=== PATIENT | female | born 1995 | race Caucasian/White ===

== ENCOUNTER 2016-04-20 20:34 | Emergency (ER) | payer SELFPAY ==
[2016-04-20 21:16] VITALS: BP 123/84
[2016-04-20] MEDS ORDERED: Phenazopyridine TAB* 100 MG PO ONE (22:04)
[2016-04-20] MEDS ORDERED: Ciprofloxacin TAB* 500 MG PO ONE (22:05)
[2016-04-20] MEDS ORDERED: Ibuprofen TAB* 600 MG PO ONE (22:06)
--- NOTE | 2016-04-20 22:17 | UC ---
Complaint Female HPI - HPI Summary HPI Summary: 21 YEAR OLD FEMALE WITH COMPLAINTS OF URGENCY, FREQUENCY, PAINFUL URINATION X 1 WEEK. BACK PAIN , FEVER AND NAUSEA STARTED LAST NIGHT. STATES SHE TOOK A CRANBERRY PILL AT ONSET OF SYMPTOMS AND FELT RELIEF. MILD RELIEF WITH ONE IBUPROFEN. DENIES ABDOMINAL PAIN - History Of Current Complaint Chief Complaint: UCGU Stated Complaint: POSSIBLE UTI Time Seen by Provider: 04/20/16 21:57 Hx Obtained From: Patient Hx Last Menstrual Period: 04/13/16 Onset/Duration: Gradual Onset, Lasting Weeks - 1, Still Present Severity Initially: Mild Severity Currently: Moderate Character: Burning Aggravating Factor(s): Urination Associated Signs And Symptoms: Positive: Fever, Back Pain, Nausea. Negative: Vaginal Bleeding/Discharge, Vaginal Discharge, Genital Swelling, Genital Blisters - Risk Factors Ectopic Risk Factor: Negative Ovarian Torsion Risk Factor: Reproductive Age - Allergies/Home Medications Allergies/Adverse Reactions: Allergies Allergy/AdvReac Type Severity Reaction Status Date / Time No Known Allergies Allergy Verified 04/20/16 21:15 PMH/Surg Hx/FS Hx/Imm Hx Previously Healthy: Yes Endocrine History Of: Denies: Diabetes Cardiovascular History Of: Denies: Cardiac Disorders Respiratory History Of: Denies: Asthma - Surgical History Surgical History: None - Family History Known Family History: Negative: Hypertension, Diabetes - Social History Occupation: Employed Full-time - [employer] Lives: With Family Alcohol Use: Weekly Substance Use Type: None Smoking Status (MU): Never Smoked Tobacco Review of Systems Constitutional: Fever Skin: Negative Eyes: Negative ENT: Negative Respiratory: Negative Cardiovascular: Negative Gastrointestinal: Negative Genitourinary: Dysuria, Frequency, Urgency Motor: Negative Neurovascular: Negative Musculoskeletal: Other: - LEFT FLANK PAIN Neurological: Negative Psychological: Negative All Other Systems Reviewed And Are Negative: Yes Physical Exam Triage Information Reviewed: Yes Appearance: No Pain Distress, Well-Nourished, Ill-Appearing - MILDLY Vital Signs: Initial Vital Signs Temp 98.4 F 04/20/16 21:10 Pulse 86 04/20/16 21:10 Resp 16 04/20/16 21:10 BP 123/84 04/20/16 21:10 Pulse Ox 99 04/20/16 21:10 Vital Signs Reviewed: Yes Eyes: Positive: Conjunctiva Clear. Negative: Discharge ENT: Positive: Pharynx normal. Negative: Nasal congestion Neck: Positive: Supple, Nontender Respiratory: Positive: Lungs clear, Normal breath sounds Cardiovascular: Positive: RRR, No Murmur Abdomen Description: Positive: Nontender, No Organomegaly, Soft, CVA Tenderness (R) - MILD, CVA Tenderness (L) - MODERATE. Negative: Distended, Guarding Musculoskeletal: Positive: Strength Intact, ROM Intact Neurological: Positive: Alert, Muscle Tone Normal Psychological: Positive: Age Appropriate Behavior - PLEASANT AND COOPERATIVE Skin: Negative: rashes, breakdown Complaint Female Dx - Course Course Of Treatment: ua +. MEDICATED WITH ANTIBIOTICS, IBUPROFEN. EDUCATION ABOUT UTI AND EARLY TREATMENT - Differential Dx/Diagnosis Differential Diagnosis/HQI/PQRI: Urinary Tract Infection Provider Diagnoses: PYELONEPHRITIS. UTI Discharge - Discharge Plan Condition: Stable Disposition: HOME Prescriptions: Ciprofloxacin TAB* [Cipro Tab*] 500 mg PO BID #20 tab Phenazopyridine TAB* [Pyridium TAB*] 100 mg PO TID PRN #6 tab PRN Reason: PAINFUL URINATION Patient Education Materials: Acute Pyelonephritis (ED), Urinary Tract Infection in Women (ED)
== END 2016-04-20 22:27 | disposition home or self-care (01) ==
LOC: UCCORT 20:34
DX: N10 Acute pyelonephritis (principal); N39.0 Urinary tract infection, site not specified
CPT/HCPCS: 87077; 87086; 87186; 99202; A9270-GY; G0463

== ENCOUNTER 2016-10-20 08:21 | Emergency (ER) | payer SELFPAY ==
[2016-10-20 08:41] VITALS: BP 132/67
--- NOTE | 2016-10-20 09:26 | UC ---
Abdominal Pain Female HPI - HPI Summary HPI Summary: 21 yo pt c/o bilat mid abd pain that radiates to her left flank, vomiting after eating and diarrhea and weight loss of 11 pounds for a few weeks. Pt is concerned that it might be her thyroid, because her mother had similar problems and it was her thyroid. Pt's mother is at age 41 with cancer in her bone, skin, liver (not thyroid). Pt has tried a gluten free diet with no relief. She has also tried ensure and other supplements and she still is losing weight. States that she wants to eat and gain wait, does not have an eating disorder. States she has always been "small". Has Charlene Nicole for her PCP but was unable to get a soon appointment. Has missed work since because of the abd pain and vomiting. States she tried zofran with no relief. Denies hemetemesis, melena, hematochezia. - History of Current Complaint Chief Complaint: UCGI Stated Complaint: VOMIT/DIARRHEA WITH EATING/LOSING WEIGHT Time Seen by Provider: 10/20/16 08:39 Hx Obtained From: Patient Hx Last Menstrual Period: 2 weeks ?: No Onset/Duration: Gradual Onset, Lasting Weeks, Still Present Timing: Constant Severity Initially: Moderate Severity Currently: Moderate Pain Intensity: 2 Pain Scale Used: 0-10 Numeric Location: Discrete At: RLQ, Discrete At: LLQ, Epigastric Radiates: Yes Radiates to: Flank - left Character: Aching, Cramping Aggravating Factor(s): Nothing Alleviating Factor(s): Nothing Associated Signs and Symptoms: Positive: Back Pain, Decreased Appetite, Nausea, Vomiting, Diarrhea. Negative: Fever, Dizzy, Constipation - but is usually constipated, Blood in Stool, Urinary Symptoms Allergies/Adverse Reactions: Allergies Allergy/AdvReac Type Severity Reaction Status Date / Time seasonal Allergy Congestion Uncoded 10/20/16 08:41 PMH/Surg Hx/FS Hx/Imm Hx Previously Healthy: Yes - Surgical History Surgical History: None - Family History Known Family History: Negative: Hypertension, Diabetes - Social History Occupation: Employed Full-time Alcohol Use: Weekly Alcohol Amount: 6 Substance Use Type: None Smoking Status (MU): Never Smoked Tobacco Review of Systems Constitutional: Negative Skin: Negative Eyes: Negative ENT: Negative Respiratory: Negative Cardiovascular: Negative Gastrointestinal: Abdominal Pain, Vomiting, Diarrhea Genitourinary: Negative Motor: Negative Neurovascular: Negative Musculoskeletal: Negative Neurological: Negative Psychological: Negative All Other Systems Reviewed And Are Negative: Yes Physical Exam Triage Information Reviewed: Yes Appearance: Well-Appearing, Pain Distress, Thin Vital Signs: Initial Vital Signs Temp 98.5 F 10/20/16 08:24 Pulse 93 10/20/16 08:24 Resp 18 10/20/16 08:24 BP 132/67 10/20/16 08:24 Pulse Ox 99 10/20/16 08:24 Vital Signs Reviewed: Yes Eyes: Positive: Conjunctiva Clear ENT: Positive: Normal ENT inspection Neck: Positive: Supple, Nontender, No Lymphadenopathy, Other: - thyroid nonpalpable, no masses Respiratory: Positive: Lungs clear, Normal breath sounds, No respiratory distress Cardiovascular: Positive: RRR, No Murmur, Pulses Normal, Brisk Capillary Refill Abdomen Description: Positive: No Organomegaly, Soft, Other: - mild tenderness mild bilat lower quadrants and left upper quadrant and epigastrium. Negative: Nontender, Bruit, CVA Tenderness (R), CVA Tenderness (L), Distended, Guarding, Hernia @, Hepatomegaly, McBurney's Point Tenderness, Peritoneal Signs, Pulsatile Mass, Splenomegaly Bowel Sounds: Positive: Present Musculoskeletal: Positive: Strength Intact, ROM Intact Neurological: Positive: Alert Psychological Exam: Normal Skin Exam: Normal Abd Pain Female Course/Dx - Course Course Of Treatment: UA neg UHCG neg. weight recorded is actual weight. Will treat as possible gastritis. Advised try gluten free again. Needs close f/u with Charlene Nicole who can do bloodwork, including thyroids, and refer to GI if needed. - Differential Dx/Diagnosis Differential Diagnosis: Appendicitis, Constipation, Diverticulitis, Gall Bladder Disease, Irritable Bowel Syndrome, Peptic Ulcer Disease, Renal Colic Provider Diagnoses: abdominal pain. weight loss greater than 10% body weight by history - Physician Notification/Consults Instructed by Provider To: MD Will See In ED Discharge - Discharge Plan Condition: Stable Disposition: HOME Prescriptions: Omeprazole CAP* [Prilosec CAP* 20 MG] 20 mg PO BID #20 cap. Patient Education Materials: Gastritis (ED), Acute Nausea and Vomiting (ED) Forms: *Work Release Referrals: Charlene Nicole NP [Primary Care Provider] - (definite follow up with Charlene Nicole on Oct 27 at 11:15am. Dr. Swann made the appointment for you. ) Additional Instructions: Charlene Nicole will be able to do blood tests for you regarding your thyroid. She will also follow up about your pain and weight loss. Keep track of your weight and a food diary that you can show her. Go to the ER if you have increased pain, fever, vomiting or any new or worsening symptoms. Try the prilosec to see if decreasing acid production helps your symptoms.
== END 2016-10-20 09:51 | disposition home or self-care (01) ==
LOC: UCCORT 08:21
DX: R10.32 Left lower quadrant pain (principal); R10.31 Right lower quadrant pain; R10.13 Epigastric pain; R63.4 Abnormal weight loss; R11.2 Nausea with vomiting, unspecified; R19.7 Diarrhea, unspecified; Z32.02 Encounter for pregnancy test, result negative
CPT/HCPCS: 81003; 84702; 99212; G0463

== ENCOUNTER 2017-02-25 15:53 | Emergency (ER) | payer OTHER ==
--- NOTE | 2017-02-25 16:39 | UC ---
Hip/Pelvis Pain - HPI Summary HPI Summary: 21 YEAR OLD FEMALE PRESENTS WITH COMPLAINS OF RIGHT HIP PAIN AFTER SECONDARY TO GETTING IT STUCK UNDER A PALLET AT WORK. SHE WAS SEEN IN THE ER AND AN XRAY OF THE HIP AND PELVIS SHOWED NO FX. - History Of Current Complaint Stated Complaint: RIGHT HIP PAIN/INJURY Time Seen by Provider: 02/25/17 16:38 Hx Obtained From: Patient Hx Last Menstrual Period: 2 weeks Onset/Duration: Lasting Days Severity Initially: Moderate Severity Currently: Moderate Pain Scale Used: 0-10 Numeric - 5 Character Of Pain: Sharp, Throbbing Aggravating Factor(s): Weight Bearing Alleviating Factor(s): Rest, Position Associated Signs And Symptoms: Positive: Weakness - Allergies/Home Medications Allergies/Adverse Reactions: Allergies Allergy/AdvReac Type Severity Reaction Status Date / Time seasonal Allergy Congestion Uncoded 02/25/17 16:58 PMH/Surg Hx/FS Hx/Imm Hx Previously Healthy: Yes - Surgical History Surgical History: None - Family History Known Family History: Negative: Hypertension, Diabetes - Social History Alcohol Use: Weekly Alcohol Amount: 6 Substance Use Type: None Smoking Status (MU): Never Smoked Tobacco Review of Systems Constitutional: Negative Skin: Negative Eyes: Negative ENT: Negative Respiratory: Negative Cardiovascular: Negative Gastrointestinal: Negative Genitourinary: Negative Motor: Negative Neurovascular: Negative Musculoskeletal: Negative, Other: - RIGHT LATERAL THIGH/HIP PAIN Neurological: Negative Psychological: Negative All Other Systems Reviewed And Are Negative: Yes Physical Exam Triage Information Reviewed: Yes Vital Signs Reviewed: Yes Eye Exam: Normal ENT Exam: Normal Dental Exam: Normal Neck exam: Normal Neck: Positive: 1 Respiratory Exam: Normal Cardiovascular Exam: Normal Abdominal Exam: Normal Musculoskeletal: Positive: Other: - RIGHT THIGH/HIP PAIN Neurological Exam: Normal Psychological Exam: Normal Skin Exam: Normal Hip Injury Course/Dx - Differential Dx/Diagnosis Provider Diagnoses: RIGHT THIGH/HIP PAIN Discharge - Discharge Plan Condition: Stable Disposition: HOME Prescriptions: Meloxicam [Mobic] 7.5 mg PO BID #30 tab Methocarbamol TAB* [Robaxin 500 MG TAB*] 500 mg PO TID PRN #30 tab PRN Reason: Spasms Patient Education Materials: Hip Pain (ED), Hip Contusion (ED) Forms: *Work Release Referrals: Ramon Campos MD [Medical Doctor] - Charlene Nicole NP [Primary Care Provider] -
[2017-02-25 16:58] VITALS: BP 105/57
[2017-02-25] MEDS ORDERED: predniSONE TAB* 20 MG PO ONE (17:51)
== END 2017-02-25 18:03 | disposition home or self-care (01) ==
LOC: UCCORT 15:53
DX: M79.651 Pain in right thigh (principal); M25.551 Pain in right hip; W23.0XXD Caught, crushed, jammed, or pinched between moving objects, subsequent encounter; Y92.9 Unspecified place or not applicable; Z72.89 Other problems related to lifestyle
CPT/HCPCS: 84702; 99213; G0463; J7512

== ENCOUNTER 2017-05-10 07:01 | Day surgery (SDC) | payer OTHER ==
--- NOTE | 2017-05-04 22:55 | HP ---
HISTORY AND PHYSICAL: DATE OF SURGERY: 05/10/17 DATE OF OFFICE VISIT: 05/04/17 ATTENDING SURGEON: Tk Chaudhary MD * (DICTATED BY SHILO ANDRE) PROCEDURE: Right hip arthroscopic labral repair and osteoplasty. CHIEF COMPLAINT: Right hip. HISTORY OF PRESENT ILLNESS: Meghan is a 22-year-old female, who presents to the clinic for right hip pain due to a work-related injury that caused a labral tear. She has failed conservative measures to include physical therapy and injections and has therefore agreed to undergo a right hip arthroscopic labral repair and osteoplasty with Dr. Chaudhary on 05/10/17. PAST MEDICAL HISTORY: Seizure disorder in high school, no longer has seizures. PAST SURGICAL HISTORY: No prior surgeries. MEDICATIONS: 1. Meloxicam 7.5 mg 1 by mouth twice a day as needed. 2. Ibuprofen 200 mg 1 by mouth as needed. 3. Methocarbamol 500 mg 1 by mouth 3 times a day as needed for spasms. ALLERGIES: Seasonal allergies. No known drug allergies. FAMILY HISTORY: Positive for diabetes, heart disease, hypertension, and cancer. Her grandmother had a history of DVT at an older age after hip fracture. SOCIAL HISTORY: She lives with her father. She works at [employer]. She denies smoking. She reports occasional alcohol consumption. REVIEW OF SYSTEMS: A 14-point review of systems was reviewed with the patient. Positive for current complaint, otherwise negative. Denies chest pain, shortness of breath, fevers, chills, history of bleeding disorder, personal history of DVT or PE. PHYSICAL EXAMINATION GENERAL: Well-developed, well-nourished 22-year-old female, in no acute distress. Alert and oriented x3. VITAL SIGNS: Height 60, weight 91. Pulse 84, blood pressure 116/80, respiratory rate 16. BMI 17.8. HEENT: Normocephalic, atraumatic. PERRLA. Throat clear. NECK: Supple. PULMONARY: Lungs are clear to auscultation bilaterally. No wheezing, rhonchi, or rales. CARDIO: Regular rate and rhythm. S1, S2. No murmurs, gallops, or rubs. No edema. ABDOMEN: Positive bowel sounds, soft, nontender. MUSCULOSKELETAL: Right lower extremity, skin is intact. No warmth or erythema. Mild tenderness to palpitation over the lateral hip. Nontender anteriorly. Pain with log roll. Pain with deep flexion to 120. Positive FADIR. Internal rotation to 25 degrees. Negative TIM. External rotation to 40 degrees. +2 PT pulse. Sensation intact to light touch distally. STUDIES: MR arthrogram of the right hip revealed labral tear and femoral acetabular impingement. IMPRESSION: Right hip labral tear and femoral acetabular impingement. PLAN: The patient is scheduled to undergo a right hip arthroscopic labral repair and osteoplasty with Dr. Chaudhary on 05/10/17. She will follow up in 10 to 14 days postop for followup and suture removal. She should start physical therapy the day after surgery. She was given description of protocol today in clinic. Percocet was sent to the patient's pharmacy for postop pain management and naproxen was sent for prevention of heterotopic ossification. SHILO ANDRE [id number]/[facility] #: [id number] ESTUARDO
[~2017-05-10 07:01] MED LIST: Buffered Lidocaine 0.9% SYRIN* 5 ML/SYR SYRINGE INTRADERM ONE; Dexamethasone IV* 4 MG/ML 1 ML (4 MG) IV SLOW PU ONE; Famotidine IV* 10 MG/ML 2 ML (20 mg) IV ONE
[2017-05-10] MEDS ORDERED: Dexamethasone IV* 4 MG/ML 1 ML (4 MG) ONE (07:09)
[2017-05-10] MEDS ORDERED: Famotidine IV* 10 MG/ML 2 ML (20 mg) ONE (07:10)
[2017-05-10] MEDS ORDERED: ceFAZolin 2 GM (*##) 2 GM/100 ML BAG USE CEFA2SOL IVPB ONE (07:20)
[2017-05-10] MEDS ORDERED: Bupivacaine 0.25% SDV* 30 ML ONE (07:22)
[2017-05-10] MEDS ORDERED: Ketorolac INJ* 30 MG/ML 1 ML VIAL ONE ×2 (07:22→10:01)
[2017-05-10] MEDS ORDERED: Propofol* 10 MG/ML 20 ML BTL IV PUSH ONE (08:15)
[2017-05-10] MEDS ORDERED: Lidocaine 2% PF * 5 ML VIAL ONE (08:15)
[2017-05-10] MEDS ORDERED: Rocuronium* 10 MG/ML VIAL ONE (08:16)
[2017-05-10] MEDS ORDERED: fentaNYL* 50 MCG/ML 2 ML VIAL (100 MCG VIAL) ONE (08:16)
[2017-05-10] MEDS ORDERED: Midazolam* 1 MG/ML 2 ML VIAL (2 MG) ONE (08:16)
[2017-05-10] MEDS ORDERED: Acetaminophen TAB* 325 MG PO PRN (08:20)
[2017-05-10] MEDS ORDERED: fentaNYL* 50 MCG/ML 2 ML VIAL (100 MCG VIAL) IV PRN (08:20)
[2017-05-10] MEDS ORDERED: PROCHLORPERAZINE INJ 5 MG/ML 2 ML VIAL IV PRN (08:20)
[2017-05-10] MEDS ORDERED: Ondansetron INJ* 2 MG/ML VIAL IV PRN (08:20)
[2017-05-10] MEDS ORDERED: diPHENhydraMINE IV* 50 MG/ML 1 ml VIAL (BENADRYL) IV PRN (08:20)
[2017-05-10] MEDS ORDERED: oxyCODONE/Acetamin 5/325 MG* TAB PO PRN (08:20)
[2017-05-10] MEDS ORDERED: oxyCODONE TAB* 5 MG TAB PO PRN (08:20)
[2017-05-10] MEDS ORDERED: HYDROmorphone INJ* 1 MG/ML CARPUJECT SYRINGE IV PRN (08:20)
[2017-05-10] MEDS ORDERED: Naloxone* 0.4 MG/ML 1 ML VIAL IV PRN (08:20)
[2017-05-10] MEDS ORDERED: Ondansetron INJ* 2 MG/ML VIAL ONE (10:01)
[2017-05-10] MEDS ORDERED: oxyCODONE/Acetamin 5/325 MG* TAB ONE (11:52)
[2017-05-10 12:43] VITALS: BP 109/68
--- NOTE | 2017-05-10 13:02 | RAD ---
INDICATION: RIGHT hip arthroscopy. COMPARISON: April 11, 2017 radiographs and April 04, 2017 MRI. TECHNIQUE: 33.1 seconds fluoroscopy. FINDINGS: Spot image documents arthroscopy instruments at the superolateral aspect of the RIGHT hip joint. IMPRESSION: Procedural fluoroscopy. CPT II Codes: 6045F
--- NOTE | 2017-05-22 12:01 | OP ---
CC: PCP OPERATIVE REPORT: DATE OF OPERATION: 05/10/17 DATE OF : 89 SURGEON: Tk Chaudhary MD. COOKER CASING: SHILO Ellis. ANESTHESIOLOGIST: Dr. Powell. ANESTHESIA: PRE-OP DIAGNOSIS: Right hip femoral acetabular impingement with labral tear. 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 OPERATIVE PROCEDURE: 1. Right hip arthroscopy with pincer osteoplasty and labral repair. 2. Cam osteoplasty. COMPLICATIONS: None. ESTIMATED BLOOD LOSS: Minimal. 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 On 02/23/17, she failed conservative management. She had a response to an intraarticular injection and a MRI finding that confirmed femoral acetabular impingement. After extensive discussion, the risks and benefits of surgery including risks of anesthesia, scarring, stiffness, persistent pain, need for surgery, risks of heterotropic ossification, failure, need for surgery, risk for arthritis, fracture, stiffness, persistent pain, incomplete relief of symptoms, risks of DVT, she has elected to proceed with surgical treatment. OPERATIVE FINDINGS: The traction provided good access to the hip without evidence of underlying hyperlaxity. Arthroscopic exam showed labral tearing of the anterior portion of the labrum from the 10 o'clock to 2 o'clock position with a positive wave sign in the acetabular cartilage. There were grade 0 changes to the acetabulum, grade 0 to 1 change to the femoral head. There was a mild amount of thickened capsule with no capsular laxity. There was a small cam deformity. DESCRIPTION OF PROCEDURE: The patient was greeted in the preoperative area by the attending surgeon. Correct extremity was marked and consent was confirmed. The patient was brought back to the operative suite, where she was placed in supine position on the operating table. A thigh high NOAH stocking was placed in the nonoperative leg. She then underwent general anesthesia and endotracheal intubation after which she was placed in well-padded boots and appropriately positioned on Romero and Nephew traction table with large well- padded peroneal post. The operative leg was then placed in a dynamic leg moscoso and placed in a slight flexion, gentle internal rotation, neutral adduction to bring the femoral neck parallel to the floor to facilitate atraumatic access. The right hip was then prepped and draped in the usual sterile fashion beginning with pre-scrub with chlorhexidine soap and alcohol wipe. Also gentle traction was placed in the left leg to balance the pelvis. After a miniature surgical pause, gross traction was applied to the operative extremity and under sterile condition, an 18-gauge spinal needle was used to break the acetabular seal. Once this was done, fine traction was applied to the leg to distract the joint by about 1.5 cm in space. This was appreciated and visualized using a large C-arm fluoro. The patient was protected with lead during this case. Traction was then taken down once the seal had been broken. The right hip was then prepped and draped with a final prep and drape of ChloraPrep. After appropriate surgical pause indicating site, side, procedure and administration of antibiotics, the traction was brought back up and timer began. Total traction time was less than 1 hour. First, the anterior pertrochanteric portal was accessed using a long spinal needle. This was confirmed under fluoroscopy. The cannula and then arthroscope were then introduced into the joint atraumatically. The mid anterior portal was then made in a similar fashion using needle localization. Once these portals were placed, the trocar was advanced atraumatically to the joint. A 70-degree scope was used to identify the head and identify the joint. The portals were switched to make sure that no portal was disrupting the labrum or through the labrum. The above changes were noted. There were grade 0 changes to the acetabular cartilage. There was a positive wave sign. There was a labral tear from the 10 o'clock to the 2 o'clock position with fraying. The [place] blade was then brought into the anterior portal and a capsulotomy was begun. The pump was set to 40 mmHg to provide stable consistent pressure throughout the entirety of the case. A synovectomy was carried out using a full radius shaver as well as electrocautery device to maintain hemostasis. The rim of the acetabulum was carefully visualized and there was evidence particularly around where the labrum was torn. The capsular reflection was then peeled back. The labrum was carefully probed and a decision was made to make a repair. The labrum was then released using the [place] blade. A 5.5 mm round lana was then used to remove the crossover sign and debride the pincer lesion. This was based on preoperative templating. This was confirmed using the C- arm. Once the pincer osteoplasty was complete, attention was directed to the labrum to try to do a labral repair. Two 1.8 mm Romero and Nephew Q-Fix anchors were placed, one at the 10 o'clock and one at the 2 o'clock position and passed through the labrum in a simple configuration and used to reattach the labrum. This helped to restore a normal labral feel, it was probed and found to be stable. Once the intraarticular work was completed, attention was directed to the cam. The traction was removed from the hip and the hip was visualized both arthroscopically and confirmed through the C-arm, it was then completely reduced. At this point, the traction was also released from the contralateral extremity. The femoral head and neck were visualized and the capsulotomy was then prateek'd to allow for exposure of the small cam lesion. Using preoperative templating as a guidance, the femoral neck osteoplasty was done using a 5.5 mm lana. Resection was done and carried out superiorly to laterally and inferiorly to medially. This was confirmed and monitored using the C-arm to make sure there was elimination as much at the femoral side and impingement as possible. Femoral head and neck angle were normalized. Care was taken to prevent iatrogenic injury to the vessels. Post resection dynamic testing was done under direct visualization arthroscopically to make sure bony impingement was removed. At this point, meticulous hemostasis was obtained. After evacuation of the fluid in the soft tissues, a spinal needle was used intraarticularly to place Toradol with injectable saline into the joint. The wounds were copiously irrigated with sterile saline. The skin incisions were closed in layers with 2-0 Vicryl and 3-0 nylon and the portals were injected with 0.25% Marcaine plain for postoperative pain control. She was awoken from anesthesia. Sterile dressings as well as a thigh high NOAH hose and a Cryo/Cuff was placed. She was transferred to the PACU in stable condition. POSTOPERATIVE PLAN: She will be 50% weightbearing for 2 weeks. No hip flexion past 90 degrees for the first 2 weeks. NOAH stockings worn at all times. She will remove the dressings on postop day 3. DVT prophylaxis was considered, but deferred due to no previous personal or family history. She will be discharged on Naprosyn 500 mg p.o. b.i.d. for 30 days and Percocet as needed. I will see the patient back in 10 to 14 days with repeat x-rays of the hip including a Lara lateral. [id number]/[facility] #: [id number] MTDD
== END 2017-05-10 12:48 | disposition home or self-care (01) ==
LOC: OR 07:01
PROVIDERS: ATTEND Orthopaedic Surgery
DX: S73.191A Other sprain of right hip, initial encounter (principal); M25.851 Other specified joint disorders, right hip; X50.0XXA Overexertion from strenuous movement or load, initial encounter; Y93.89 Activity, other specified; Y92.59 Other trade areas as the place of occurrence of the external cause; Y99.0 Civilian activity done for income or pay
CPT/HCPCS: 76000; 81025; A9270-GY; J1100; J1885; J2250; J2405; J2704; J3010

== ENCOUNTER 2017-08-15 07:07 | Emergency (ER) | payer OTHER ==
--- OUTSIDE RECORDS SUMMARY | 2017-08-15 07:15 | XMS REPORT ---
:1995 External Reference #:[id number] Author Organization [facility] Address [address] [address] Phone [phone] Care Team Providers Name Role Phone Charlene Nicole NP Primary Care Physician Unavailable Payers Type Date Identification Payment Provider Subscriber Numbers Workers Compensation Effective: Policy Number: Travelers Meghan Mancera 02/23/2017 [id number] Insurance Onset: 02/23/2017 Group Name: fax; [phone] [address] PayID: [id number] [place] [address] Problems Date Description Provider Status Onset: 04/11/2017 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 Onset: 04/11/2017 Trochanteric bursitis Tk Chaudhary MD Active Onset: 04/11/2017 Lumbar radiculopathy Tk Chaudhary MD Active Onset: 06/22/2017 Arthropathy of pelvis Tk Chaudhary MD Active Onset: 06/22/2017 Strain of flexor muscle of hip Tk Chaudhary MD Active Family History Date Family Member(s) Problem(s) Comments General Diabetes General Heart Disease General Hypertension General Cancer Father vertigo Father paternal grandmother-HTN,DM Father Paternal grandfather-heart valve replacement Mother Cancer ear which spread to bone and skin Mother thyroid removed,history of cellulitis Mother maternal grandfather-DM,HTN Mother Maternal grandmother-heart issues,DM,hypotension Social History Type Date Description Comments Marital Status Single Lives With Father 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 [employer] ETOH Use Occasionally consumes alcohol Smoking Patient has never smoked Recreational Drug Use Denies Drug Use Daily Caffeine Consumes on average 2 cups of regular coffee per day Daily Caffeine Consumes on average 2 sodas per day Daily Caffeine consumes chocolate occasionally Daily Caffeine Hot and or cold tea everynight Exercise Type/Frequency Does not exercise Allergies, Adverse Reactions, Alerts Date Description Reaction Status Severity Comments 03/01/2017 NKDA active 03/01/2017 Seasonal active Medications Medication Date Status Form Strength Qnty SIG Indications Ordering Provider Naproxen Active Tablets 500mg 60tabs 1 by mouth [place]neb 018 twice a MD Jet day x 30 days post op. do not take before surgery Meloxicam Active Tablets 7.5mg take one Unknown 000 tab twice daily prn Ibuprofen Active Tablets 200mg 1 po as Unknown 000 needed Methocarbamol Active Tablets 500mg 1 by mouth Unknown 000 three times a day as needed for spasm Percocet Hx Tablets 5-325mg 40tabs 1-2 tabs Reneb 018 - by mouth MD Jet every 4-6 018 hours as needed post op pain Medications Administered in Office Medication Date Status Form Strength Qnty SIG Indications Ordering Provider Celestone 3 mg Administered Injection Ramon Robledo and 3mg James Campos MD Vital Signs Date Vital Result Comment 07/27/2017 Heart Rate 88 /min BP Systolic 100 mmHg BP Diastolic 70 mmHg Body Temperature 98.6 F Pain Level 0 06/22/2017 Height 60 inches 5'0" Weight 91.00 lb BP Systolic 104 mmHg BP Diastolic 60 mmHg Respiratory Rate 18 /min Pain Level 2 BMI (Body Mass Index) 17.8 kg/m2 05/25/2017 Height 60 inches 5'0" Weight 91.00 lb BP Systolic 112 mmHg BP Diastolic 64 mmHg Respiratory Rate 18 /min Body Temperature 97.6 F Pain Level 0 BMI (Body Mass Index) 17.8 kg/m2 05/04/2017 Height 60 inches 5'0" Weight 91.00 lb w/ shoes Heart Rate 84 /min reg BP Systolic Sitting 116 mmHg Lue BP Diastolic Sitting 80 mmHg Lue Respiratory Rate 16 /min Pain Level 7 right hip BMI (Body Mass Index) 17.8 kg/m2 04/20/2017 Height 60 inches 5'0" Weight 100.00 lb per pt Heart Rate 82 /min reg BP Systolic Sitting 124 mmHg Lue BP Diastolic Sitting 80 mmHg Lue Respiratory Rate 16 /min Pain Level 1 right hip BMI (Body Mass Index) 19.5 kg/m2 04/11/2017 Height 60 inches 5'0" Weight 100.00 lb Heart Rate 82 /min BP Systolic 110 mmHg BP Diastolic 62 mmHg Respiratory Rate 18 /min Pain Level 8 BMI (Body Mass Index) 19.5 kg/m2 04/10/2017 Height 60 inches 5'0" Weight 100.00 lb Heart Rate 69 /min BP Systolic Sitting 96 mmHg BP Diastolic Sitting 62 mmHg Respiratory Rate 17 /min Pain Level 7 BMI (Body Mass Index) 19.5 kg/m2 03/22/2017 Height 60 inches 5'0" Weight 100.00 lb Heart Rate 90 /min BP Systolic Sitting 100 mmHg BP Diastolic Sitting 62 mmHg Respiratory Rate 18 /min Pain Level 4 BMI (Body Mass Index) 19.5 kg/m2 03/15/2017 Heart Rate 82 /min BP Systolic 108 mmHg BP Diastolic 84 mmHg Respiratory Rate 12 /min no respiratory difficulties Pain Level 1 O2 % BldC Oximetry 98 % 03/01/2017 Weight 100.00 lb Heart Rate 76 /min BP Systolic 98 mmHg BP Diastolic 68 mmHg Respiratory Rate 16 /min Pain Level 1 Results Description No Information Procedures Date CPT Code Description Status 05/10/2017 50847 Arthroscopy,Hip,Labral Repair Completed 05/10/2017 04468 Arthroscopy,Hip,Labral Repair Completed 05/10/2017 91033 Arthroscopy,Hip,W/Femoroplasty,Treatment Of Cam Lesion Completed 05/10/2017 04475 Arthroscopy,Hip,W/Femoroplasty,Treatment Of Cam Lesion Completed 03/01/2017 32402 Inject/Drain Joint/Bursa Major Completed 03/01/2017 25020 Inject/Drain Joint/Bursa Major Completed Encounters Type Date Location Provider CPT E/M Dx Office Visit 04/20/2017 1:45p [facility] [place] [address] M54.16 [facility] M70.61 M24.151 Office Visit 04/11/2017 10:30a [facility] [place] [address] M24.151 [facility] M70.61 M54.16 M24.151 Office Visit 04/10/2017 8:30a [facility] [place] [address] M24.151 [facility] [place] Office Visit 03/22/2017 10:30a [facility] [place] [address] M25.551 [facility] [place] Office Visit 03/15/2017 8:45a [facility] [place] [address] M70.61 [facility] [place] M70.61 M76.31 Office Visit 03/01/2017 11:00a [facility] [place] [address] M70.61 [facility]70.61 M76.31 M76.31 Plan of Care Future Appointment(s):09/12/2017 9:00 am - Tk Chaudhary MD at [facility].07/27/2017 - Tk Chaudhary, MDS76.011A Strain of muscle, fascia and tendon of right hip, initFollow up:Follow up: 6 hsjpxT05.851 Other specified joint disorders, right hip
[2017-08-15 07:23] VITALS: BP 119/79
--- NOTE | 2017-08-15 07:38 | UC ---
Hip/Pelvis Pain - HPI Summary HPI Summary: right hip pain x 6 months s/p injury at her place of work in February had Labrum tear surgery in May of 2017 been having physical therapy went back to work but cont. to have sever pain of right hip , swelling and tenderness difficulty walking - History Of Current Complaint Chief Complaint: UCLowerExtremity Stated Complaint: WC- RT HIP COMPLAINT Time Seen by Provider: 08/15/17 07:23 Hx Obtained From: Patient Hx Last Menstrual Period: 07/20/17 ?: No Onset/Duration: Sudden Onset, Lasting Weeks - 6 months, Still Present Timing: Constant Severity Initially: Moderate Severity Currently: Severe Pain Intensity: 10 Location: Discrete At: - right hip Character Of Pain: Aching, Spasmodic, Stiffness Aggravating Factor(s): Movement, Weight Bearing Alleviating Factor(s): Rest Associated Signs And Symptoms: Positive: Swelling, Weakness. Negative: Redness , Bruising, Fever, Dizziness - Allergies/Home Medications Allergies/Adverse Reactions: Allergies Allergy/AdvReac Type Severity Reaction Status Date / Time seasonal Allergy Congestion Uncoded 08/15/17 07:15 PMH/Surg Hx/FS Hx/Imm Hx Previously Healthy: Yes - Surgical History Surgical History: Yes Surgery Procedure, Year, and Place: R hip - Family History Known Family History: Negative: Hypertension, Diabetes - Social History Alcohol Use: Weekly Alcohol Amount: 6 Substance Use Type: None Smoking Status (MU): Never Smoked Tobacco Have You Smoked in the Last Year: No Review of Systems Constitutional: Negative Skin: Negative Eyes: Negative ENT: Negative Respiratory: Negative Cardiovascular: Negative Is Patient Immunocompromised?: No All Other Systems Reviewed And Are Negative: Yes Physical Exam Triage Information Reviewed: Yes Appearance: Well-Appearing, No Pain Distress, Thin Vital Signs: Initial Vital Signs Temp 98 F 08/15/17 07:15 Pulse 87 08/15/17 07:15 Resp 16 08/15/17 07:15 BP 119/79 08/15/17 07:15 Pulse Ox 100 08/15/17 07:15 Vital Signs Reviewed: Yes Eyes: Positive: Conjunctiva Clear ENT: Positive: Normal ENT inspection, Hearing grossly normal, Pharynx normal Neck exam: Normal Neck: Positive: Supple, Nontender, No Lymphadenopathy Respiratory: Positive: Chest non-tender, Lungs clear, Normal breath sounds, No respiratory distress Cardiovascular: Positive: RRR, No Murmur, Pulses Normal Musculoskeletal: Positive: Other: - right hip : mild swelling, no erythema, + diffuse tenderness, good ROM on Flexion and extension , stiffness on internal rotation Hip Injury Course/Dx - Differential Dx/Diagnosis Provider Diagnoses: right hip pain Discharge - Sign-Out/Discharge Documenting (check all that apply): Discharge/Admit/Transfer - Discharge Plan Condition: Stable Disposition: HOME Patient Education Materials: Hip Pain (ED) Forms: *Work Release Referrals: Charlene Nicole NP [Primary Care Provider] - Tk Chaudhary MD [Medical Doctor] - As Soon As Possible - Billing Disposition and Condition Condition: STABLE Disposition: Home
== END 2017-08-15 07:36 | disposition home or self-care (01) ==
LOC: UCCORT 07:07
DX: M25.551 Pain in right hip (principal)
CPT/HCPCS: 99212; G0463

== ENCOUNTER 2018-06-09 10:22 | Emergency (ER) | payer OTHER ==
--- OUTSIDE RECORDS SUMMARY | 2018-06-09 10:36 | XMS REPORT | Continuity of Care Document ---
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 [place] [address] Advance Directives Description No Information Available Problems Date Description Provider Status Onset: 03/30/2018 History of repair of hip joint Obdulio Roe M.D. Active Onset: 12/08/2017 Strain of flexor muscle of hip Obdulio Roe M.D. 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 Family History Date Family Member(s) Observation Comments Father Alive And Well Mother Alive And Well Children None Siblings 1 Social History Type Date Description Comments Sex Unknown Marital Status Single Occupation Student ETOH Use Occasionally consumes alcohol Tobacco Use Start: Unknown Denies Smoking Recreational Drug Use Denies Drug Use Smoking Status Reviewed: 05/18/18 Denies Smoking Allergies, Adverse Reactions, Alerts Description No Known Drug Allergies Medications Medication Date Status Form Strength Qnty SIG Indications Ordering Provider No Active 02/14/ Active Unknown Medications 2018 Oxycodone-Acet 11/ Hx Tablets 5-325mg 30tabs 1-2 by Obdulio duval 2018 - mouth every , 01/05/ 6 hour as M.D. 2018 needed for post op pain Reference #: [id number] Zolpidem 10/11/ Hx Tablets 10mg 5tabs one orally Obdulio Romo Tarpaulette 2018 - at bedtime Judith, 01/05/ as needed M.D. 2018 insomnia Ondansetron 10/11/ Hx Tablets 4mg 10tabs 1 tablet Obdulio Romo 2017 - Dispers under the Judith, tongue M.DFernando 2017 every 6 hours as needed for nausea Naproxen Hx Tablets 500mg 60tabs 1 by mouth Obdulio Romo 2017 - twice a day Judith, w/food M.D. 2017 Cephalexin Hx Capsules 500mg 12caps 1 by mouth Obdulio Romo 2017 - every 6 Judith, 01/05/ hours, M.DFernando 2017 finish To Start After Surgery No Active Unknown Medications 2017 - 2017 Immunizations Description No Information Available Vital Signs Date Vital Result Comment 05/18/2018 8:21am Height 61 inches 5'1" Weight 100.00 lb BMI (Body Mass Index) 18.9 kg/m2 Heart Rate 76 /min Body Temperature 98.5 F Pain Level 5 O2 % BldC Oximetry 99 % 04/11/2018 11:11am Height 61 inches 5'1" Weight 100.00 lb BMI (Body Mass Index) 18.9 kg/m2 Heart Rate 85 /min Body Temperature 97.9 F Pain Level 2 O2 % BldC Oximetry 99 % 03/30/2018 11:21am Height 61 inches 5'1" Weight 100.00 lb BMI (Body Mass Index) 18.9 kg/m2 Heart Rate 75 /min Body Temperature 97.2 F Pain Level 0 RT Hip O2 % BldC Oximetry 99 % 02/14/2018 11:14am Height 61 inches 5'1" Weight 100.00 lb BMI (Body Mass Index) 18.9 kg/m2 Heart Rate 76 /min Respiratory Rate 16 /min Body Temperature 98.6 F Pain Level 0 O2 % BldC Oximetry 98 % 01/05/2018 3:13pm Height 60 inches 5'0" Weight 98.00 lb BMI (Body Mass Index) 19.1 kg/m2 Heart Rate 87 /min Body Temperature 98.3 F Pain Level 2 RT Hip O2 % BldC Oximetry 99 % 12/08/2017 12:28pm Height 60 inches 5'0" Weight 98.00 lb BMI (Body Mass Index) 19.1 kg/m2 Heart Rate 98 /min Body Temperature 96.8 F Pain Level 6 Hip O2 % BldC Oximetry 99 % 12/01/2017 1:28pm Height 60 inches 5'0" Weight 96.00 lb BMI (Body Mass Index) 18.7 kg/m2 Heart Rate 75 /min Pain Level 8 RT Hip O2 % BldC Oximetry 99 % Results Description No Information Available Procedures Date Code Description Status 01/05/2018 21553 X-Ray Hip 2+ Views Completed 12/26/2017 46373 Arthroscopy,Hip,Labral Repair Completed 12/26/2017 91636 Arthroscopy,Hip,Labral Repair Completed 12/26/2017 66531 Arthroscopy,Hip,W/Femoroplasty,Treatment Of Cam Lesion Completed 12/26/2017 54235 Arthroscopy,Hip,W/Femoroplasty,Treatment Of Cam Lesion Completed 12/01/2017 49353 X-Ray Hip 2+ Views Completed Encounters Type Date Location Provider Dx Diagnosis Office Visit 04/11/2018 [facility] Judith LAO Z47.89 Encounter for other 11:45a orthopedic aftercare S76.011D Strain of muscle, fascia and tendon of right hip, subs Office Visit 03/30/2018 11:20a [facility] Obdulio Romo Z47.89 Encounter for Ashleigh Roe other orthopedic aftercare S76.011D Strain of muscle, fascia and tendon of right hip, subs Office Visit 12/08/2017 1:30p [facility] Obdulio Romo M24.151 Other hasmukh Roe M.D. cartilage disorders, right hip S76.011A Strain of muscle, fascia and tendon of right hip, init Office Visit 12/01/2017 1:30p [facility] Obdulio Romo M24.151 Other hasmukh Roe M.D. cartilage disorders, right hip M25.551 Pain in right hip Plan of Treatment No Information Available
--- OUTSIDE RECORDS SUMMARY | 2018-06-09 10:36 | XMS REPORT | Continuity of Care Document ---
:1995 External Reference #:[id number] Author Name Obdulio Roe M.D. 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 [place] [address] Advance Directives Description No Information Available Problems Date Description Provider Status Onset: 03/30/2018 History of repair of hip joint Obdulio Roe M.D. Active Onset: 12/08/2017 Strain of flexor muscle of hip Obdulio Roe M.D. Active Onset: 12/08/2017 Articular cartilage disorder of Obdulio Roe M.D. Active the pelvic region and [...] Active 02/14/ Active Unknown Medications 2018 Oxycodone-Acet 12/14/ Hx Tablets 5-325mg 30tabs 1-2 by Obdulio duval 2018 - mouth every Judith, 01/05/ 6 hour as M.D. 2018 needed for post op pain Reference #: [id number] Zolpidem 12/14/ Hx Tablets 10mg 5tabs one orally Obdulio Romo Tarpaulette 2018 - at bedtime Judith, 01/05/ as needed M.D. 2017 insomnia Ondansetron 12/14/ Hx Tablets 4mg 10tabs 1 tablet Obdulio Romo 2017 - Dispers under the Judith, tongue M.D. 2017 every 6 hours as needed for nausea Naproxen 12/14/ Hx Tablets 500mg 60tabs 1 by mouth Obdulio Romo 2017 - twice a day Judith, 02/13/ w/food M.D. 2017 Cephalexin 12/14/ Hx Capsules 500mg 12caps 1 by mouth Obdulio Romo 2017 - every 6 Judith, 01/05/ hours, M.D. 2017 finish To Start After Surgery No Active 12/01/ Hx Unknown Medications 2017 - 2017 Immunizations Description [...] Available Procedures Date Code Description Status 01/05/2018 74926 X-Ray Hip 2+ Views Completed 12/26/2017 51851 Arthroscopy,Hip,Labral Repair Completed 12/26/2017 89221 Arthroscopy,Hip,Labral Repair Completed 12/26/2017 66329 Arthroscopy,Hip,W/Femoroplasty,Treatment Of Cam Lesion Completed 12/26/2017 78998 Arthroscopy,Hip,W/Femoroplasty,Treatment Of Cam Lesion Completed 12/01/2017 45272 X-Ray Hip 2+ Views Completed Encounters Type Date Location Provider Dx Diagnosis Office Visit 04/11/2018 [facility] Judith LAO Z47.89 Encounter for other 11:45a orthopedic aftercare S76.011D Strain of muscle, fascia and tendon of right hip, subs Office Visit 03/30/2018 11:20a [facility] Obdulio Romo Z47.89 Encounter for Ashleigh Roe other orthopedic aftercare S76.011D Strain of muscle, fascia and tendon of right hip, subs Office Visit 12/08/2017 1:30p [facility] Obduilo Romo M24.151 Other hasmukh Roe M.D. cartilage disorders, right hip S76.011A Strain of muscle, fascia and tendon of right hip, init Office Visit 12/01/2017 1:30p [facility] Obdulio Romo M24.151 Other hasmukh Roe M.D. cartilage disorders, right hip M25.551 Pain in right hip Plan of Treatment Future Appointment(s):07/20/2018 3:00 pm - Obdulio Roe M.D. at [facility]
[2018-06-09 11:07] VITALS: BP 117/74
[2018-06-09] MEDS ORDERED: BSS OPTH.SOL* BTL ONE (11:10)
[2018-06-09] MEDS ORDERED: Tetracaine 0.5% OPTH.SOL 4 ML* 1 DROP BTL ONE (11:10)
[2018-06-09] MEDS ORDERED: Fluorescein Sodium TOPICAL* 1 MG TEST STRIP ONE (11:11)
--- NOTE | 2018-06-09 11:35 | UC ---
Eye Complaint HPI - HPI Summary HPI Summary: Pt c/o sudden onset of FB in right eye. Pt states that she was lifting a wooden pallet at work and "pieces of wood" that got in her right eye. She reports that she flushed eye at home but still feels "like there is something in it". - History of Current Complaint Chief Complaint: UCEye Stated Complaint: RT EYE COMPLAINT - WC Time Seen by Provider: 06/09/18 11:21 Hx Obtained From: Patient Hx Last Menstrual Period: 05/21/18 ?: No Onset/Duration: Sudden Onset, Still Present Timing: Constant Severity Initially: Mild Severity Currently: Mild Pain Intensity: 0 Location of Injury: Eye Lid (lower) Character: Dull, Foreign Body Sensation Aggravating Factor(s): Blinking Alleviating Factor(s): Other - flushing Associated Signs And Symptoms: Positive: Drainage (Clear) - Risk Factors Penetrating Injury Risk Factor: Negative Globe Rupture Risk Factors: Negative Acute Glaucoma Risk Factors: Negative Optic Artery Occlusion Risk Factors: Negative - Allergies/Home Medications Allergies/Adverse Reactions: Allergies Allergy/AdvReac Type Severity Reaction Status Date / Time No Known Allergies Allergy Verified 06/09/18 11:07 PMH/Surg Hx/FS Hx/Imm Hx Previously Healthy: Yes - Surgical History Surgical History: Yes Surgery Procedure, Year, and Place: R hip 05/2017 and 12/2017 - Family History Known Family History: Negative: Hypertension, Diabetes - Social History Occupation: Employed Full-time Lives: With Family Alcohol Use: Occasionally Alcohol Amount: 6 Substance Use Type: None Smoking Status (MU): Never Smoked Tobacco Have You Smoked in the Last Year: No - Immunization History Vaccination Up to Date: Yes Review of Systems All Other Systems Reviewed And Are Negative: Yes Constitutional: Positive: Negative Skin: Positive: Negative Eyes: Positive: Drainage, Other - FB sensation ENT: Positive: Negative Respiratory: Positive: Negative Cardiovascular: Positive: Negative Gastrointestinal: Positive: Negative Genitourinary: Positive: Negative Motor: Positive: Negative Neurovascular: Positive: Negative Musculoskeletal: Positive: Negative Neurological: Positive: Negative Psychological: Positive: Negative Is Patient Immunocompromised?: No Physical Exam Triage Information Reviewed: Yes Appearance: Well-Appearing Vital Signs: Initial Vital Signs Temp 97.8 F 06/09/18 11:03 Pulse 77 06/09/18 11:03 Resp 14 06/09/18 11:03 BP 117/74 06/09/18 11:03 Pulse Ox 99 06/09/18 11:03 Vital Signs Reviewed: Yes Eye Exam: Other - white, discharge, presumbly paint from wooden pallet, found in inner corner eye lid, small white glob of paint. removed with gloved finger and pt states eye felt better. Eyes: Positive: Conjunctiva Clear ENT Exam: Normal Dental Exam: Normal Neck exam: Normal Respiratory: Positive: No respiratory distress Musculoskeletal Exam: Normal Neurological Exam: Normal Psychological Exam: Normal Skin Exam: Normal Eye Complaint Course/Dx - Differential Dx/Diagnosis Differential Diagnosis/HQI/PQRI: Foreign Body - removed Provider Diagnosis: Foreign body of right eye Discharge - Sign-Out/Discharge Documenting (check all that apply): Patient Departure All imaging exams completed and their final reports reviewed: No Studies - Discharge Plan Condition: Stable Disposition: HOME Prescriptions: Polymyx/Trimethoprim OPTH* [Polytrim OPHTH*] 2 drop RIGHT EYE Q6H 7 Days #1 btl Patient Education Materials: Eye Foreign Body (ED) Forms: *Work Release Referrals: Brandon Tobin OD [Doctor of Osteopathy] - Charlene Nicole NP [Primary Care Provider] - If Needed - Billing Disposition and Condition Condition: STABLE Disposition: Home - Attestation Statements Provider Attestation: I was available for consult. This patient was seen by the BRIDGET. The patient was not presented to, seen by, or examined by me. EK
== END 2018-06-09 11:49 | disposition home or self-care (01) ==
LOC: UCCORT 10:22
DX: T15.11XA Foreign body in conjunctival sac, right eye, initial encounter (principal); X58.XXXA Exposure to other specified factors, initial encounter; Y92.9 Unspecified place or not applicable; Y99.0 Civilian activity done for income or pay
CPT/HCPCS: 65205; 65220; 67938; 99212; A9270-GY; G0463

== ENCOUNTER 2018-10-15 10:43 | Emergency (ER) | payer OTHER ==
--- OUTSIDE RECORDS SUMMARY | 2018-10-15 11:08 | XMS REPORT | Continuity of Care Document ---
:1995 External Reference #:[id number] Author Name Monique Daugherty Care Team Providers Name Role Phone Tk Chaudhary MD Care Team Information Software Validation Technician Unavailable Unknown Primary Care Physician Unavailable Payers Date Identification Numbers Payment Provider Subscriber Onset: 2017 Policy Number: [id number] Travelers eff 06/04 Meghan Mancera PayID: [id number] [address] [place] [address] Expires: 2018 Policy Number: [id number] [employer] Commercial Meghan Mancera PayID: [id number] [id number] [place] [address] Expires: 2018 Policy Number: [id number] Travelers pre 06/04 Meghan Mancera Onset: 2017 PayID: [id number] [address] [place] [address] Problems Active Problems Provider Date History of repair of hip joint Obdulio Roe M.D. Onset: 03/30/2018 Strain of flexor muscle of hip Obdulio Roe M.D. 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 Family History Date Family Member(s) Observation Comments Father Alive And Well Mother Alive And Well Children None Siblings 1 Social History Type Date Description Comments Sex Unknown Marital Status Single Occupation Student ETOH Use Occasionally consumes alcohol Tobacco Use Start: Unknown Denies Smoking Recreational Drug Use Denies Drug Use Smoking Status Reviewed: 09/28/18 Denies Smoking Allergies, Adverse Reactions, Alerts Description No Known Drug Allergies Medications Active Medications SIG Qnty Indications Ordering Provider Date No Active Medications Unknown 02/14/2018 History Medications Oxycodone-Acetaminophen 1-2 by mouth 30tabs Obdulio Romo 12/14/2017 - 5-325mg Tablets every 6 hour as Ashleigh Roe 01/05/2018 needed for post op pain Reference #: [id number] Zolpidem Tartrate one orally at 5tabs Obdulio Romo 12/14/2017 - 10mg Tablets bedtime as Ashleigh Roe 01/05/2018 needed insomnia Ondansetron 1 tablet under 10tabs Obdulio Romo 12/14/2017 - 4mg Tablets Dispers the tongue Ashleigh Roe 01/05/2018 every 6 hours as needed for nausea Naproxen 1 by mouth 60tabs Obdulio Romo 12/14/2017 - 500mg Tablets twice a day Ashleigh Roe 02/13/2018 w/food Cephalexin 1 by mouth 12caps Obdulio Romo 12/14/2017 - 500mg Capsules every 6 hours, Ashleigh Roe 01/05/2018 finish To Start After Surgery No Active Medications Unknown 12/01/2017 - 12/14/2017 Vital Signs Date Vital Result Comment 09/28/2018 2:43pm Height 61 inches 5'1" Weight 100.00 lb BMI (Body Mass Index) 18.9 kg/m2 Heart Rate 95 /min Respiratory Rate 16 /min Body Temperature 98.1 F Pain Level 1 RT Hip O2 % BldC Oximetry 99 % 07/20/2018 1:41pm Height 61 inches 5'1" Weight 98.00 lb BMI (Body Mass Index) 18.5 kg/m2 Heart Rate 85 /min Body Temperature 98.8 F Pain Level 0 O2 % BldC Oximetry 99 % 05/18/2018 8:21am Height 61 inches 5'1" Weight [...] Hip O2 % BldC Oximetry 99 % Procedures Date Code Description Status 05/18/2018 09461 X-Ray Hip 2+ Views Completed 01/05/2018 81646 X-Ray Hip 2+ Views Completed 12/26/2017 54111 Arthroscopy,Hip,Labral Repair Completed 12/26/2017 96807 Arthroscopy,Hip,Labral Repair Completed 12/26/2017 29340 Arthroscopy,Hip,W/Femoroplasty,Treatment Of Cam Lesion Completed 12/26/2017 84919 Arthroscopy,Hip,W/Femoroplasty,Treatment Of Cam Lesion Completed 12/01/2017 71441 X-Ray Hip 2+ Views Completed Encounters Type Date Location Provider Dx Diagnosis Office Visit 07/20/2018 [place] Sharlene Romo Z47.89 Encounter for other 2:00p Ashleigh Roe orthopedic aftercare S76.011D Strain of muscle, fascia and tendon of right hip, subs 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, right hip Office Visit 05/18/2018 8:20a [place] Sharlene Romo M24.151 Other articular Ashleigh Roe cartilage disorders, right hip Office Visit 04/11/2018 11:45a [place] Sharlene LAO Z47.89 Encounter for other orthopedic aftercare S76.011D Strain of muscle, fascia and tendon of right hip, subs Office Visit 03/30/2018 11:20a [place] [facility] Obdulio Romo Z47.89 Encounter for Ashleigh Roe other orthopedic aftercare S76.011D Strain of muscle, fascia and tendon of right hip, subs Office Visit 12/08/2017 1:30p [place] [facility] Obdulio Romo M24.151 Other articular Ashleigh Roe cartilage disorders, right hip S76.011A Strain of muscle, fascia and tendon of right hip, init Office Visit 12/01/2017 1:30p [place] [facility] Obdulio Romo M24.151 Other articular Ashleigh Roe cartilage disorders, right hip M25.551 Pain in right hip
--- OUTSIDE RECORDS SUMMARY | 2018-10-15 11:08 | XMS REPORT | Continuity of Care Document ---
:1995 External Reference #:[id number] Author Name Obdulio Roe M.D. Address [address] [place] [address] Care Team Providers Name Role Phone Tk Chaudhary MD Care Team Information Correctional Treatment Specialist Unavailable Unknown Primary Care Physician Unavailable Payers Date Identification Numbers Payment Provider Subscriber Onset: 2017 Policy Number: [id number] Travelers eff 06/04 Meghan Fiordaliza PayID: [id number] [address] [place] [address] Expires: 2018 Policy Number: [id number] [employer] Commercial Meghan Babcockgreg PayID: [id number] [id number] [place] [address] Expires: 2018 Policy Number: [id number] Travelers pre 06/04 Meghan Fiordaliza Onset: 2017 PayID: [id number] [address] [place] [id number] Problems Active Problems Provider Date History of [...] needed for post op pain Reference #: [id number] Zolpidem Tartrate one orally at 5tabs Obdulio [...] % Procedures Date Code Description Status 05/18/2018 09608 X-Ray Hip 2+ Views Completed 01/05/2018 94015 X-Ray Hip 2+ Views Completed 12/26/2017 89619 Arthroscopy,Hip,Labral Repair Completed 12/26/2017 15547 Arthroscopy,Hip,Labral Repair Completed 12/26/2017 32472 Arthroscopy,Hip,W/Femoroplasty,Treatment Of Cam Lesion Completed 12/26/2017 90562 Arthroscopy,Hip,W/Femoroplasty,Treatment Of Cam Lesion Completed 12/01/2017 33204 X-Ray Hip 2+ Views Completed Encounters Type Date Location Provider Dx Diagnosis Office Visit 07/20/2018 [place] Sharlene Romo Z47.89 Encounter for other 2:00p Ashleigh Roe orthopedic aftercare S76.011D Strain of muscle, fascia and tendon of right hip, subs 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, right hip Office Visit 05/18/2018 8:20a [place] Sharlene Romo M24.151 Other articular Ashleigh Roe cartilage disorders, right hip Office Visit 04/11/2018 11:45a [place] Sharlene LAO Z47.89 Encounter for other orthopedic aftercare S76.011D Strain of muscle, fascia and tendon of right hip, subs Office Visit 03/30/2018 11:20a [place] [facility] Obdulio Romo Z47.89 Encounter for Ashleigh Roe other orthopedic aftercare S76.011D Strain of muscle, fascia and tendon of right hip, subs Office Visit 12/08/2017 1:30p [place] [facility] Obdulio Romo M24.151 Other articular Ashleigh Roe cartilage disorders, right hip S76.011A Strain of muscle, fascia and tendon of right hip, init Office Visit 12/01/2017 1:30p [place] [facility] Obdulio Romo M24.151 Other hasmukh Roe M.D. cartilage disorders, right hip M25.551 Pain in right hip
[2018-10-15 11:21] VITALS: BP 116/74
--- NOTE | 2018-10-15 11:32 | UC ---
Hip/Pelvis Pain - HPI Summary HPI Summary: 23-year-old female who had right hip surgery in 2017 and then reconstructive surgery of the ligaments in 2018 as result of a work-related incident. She has been on light duty for about 3 months. On October 05 she was placed on full duty and a few days after that she started having some chronic right hip pain. She called her orthopedist who is not able to see her for approximately 1 month. She's had no new injury. She works at [employer] and is on her feet a lot. - History Of Current Complaint Chief Complaint: UCLowerExtremity Stated Complaint: RIGHT HIP PAIN Time Seen by Provider: 10/15/18 11:31 Hx Obtained From: Patient Hx Last Menstrual Period: 11/13/18 ?: No Onset/Duration: Gradual Onset Timing: Constant Severity Initially: Mild Severity Currently: Mild Pain Intensity: 5 Character Of Pain: Dull, Aching Aggravating Factor(s): Weight Bearing Alleviating Factor(s): Rest Associated Signs And Symptoms: Positive: Negative - Allergies/Home Medications Allergies/Adverse Reactions: Allergies Allergy/AdvReac Type Severity Reaction Status Date / Time No Known Allergies Allergy Verified 10/15/18 11:08 Home Medications: Home Medications Naproxen Sodium [Aleve] 440 mg PO DAILY PRN 10/15/18 [History Confirmed 10/15/18 ] PMH/Surg Hx/FS Hx/Imm Hx Previously Healthy: Yes - Surgical History Surgical History: Yes Surgery Procedure, Year, and Place: R hip 2016 and 12/2017 - Family History Known Family History: Negative: Hypertension, Diabetes - Social History Alcohol Use: Weekly Alcohol Amount: 6 Substance Use Type: None Smoking Status (MU): Never Smoked Tobacco Have You Smoked in the Last Year: No - Immunization History Vaccination Up to Date: Yes Review of Systems All Other Systems Reviewed And Are Negative: Yes Motor: Positive: Decreased ROM - Patient normally has decreased flexion of her right hip as result of this reconstructive surgery she had. She basically has increasing soreness over the right hip area. Neurovascular: Positive: Negative Musculoskeletal: Positive: Decreased ROM - Stated above. Neurological: Positive: Negative Psychological: Positive: Negative Is Patient Immunocompromised?: No Physical Exam Triage Information Reviewed: Yes Appearance: Well-Appearing, No Pain Distress, Well-Nourished Vital Signs: Initial Vital Signs Temp 98.2 F 10/15/18 11:10 Pulse 83 10/15/18 11:10 Resp 18 10/15/18 11:10 BP 116/74 10/15/18 11:10 Pulse Ox 100 10/15/18 11:10 Vital Signs Reviewed: Yes Musculoskeletal: Positive: Strength Intact, No Edema, ROM Limited @ - Patient has no new limited range of motion however is result of the surgery last year she has limited hip flexion to approximate 45 angle. Neurological: Positive: Alert, Muscle Tone Normal Psychological Exam: Normal Skin Exam: Normal Hip Injury Course/Dx - Course Course Of Treatment: Patient will be given no work until and then light duty following that until she is cleared by the orthopedist. She has made an appointment for 1 month from now however I advised her to call and see if they could see her earlier or put her on a waiting list she could be seen sooner. No lifting more than 30 pounds at work until cleared by the orthopedist. - Differential Dx/Diagnosis Provider Diagnosis: Chronic right hip pain Discharge - Sign-Out/Discharge Documenting (check all that apply): Patient Departure All imaging exams completed and their final reports reviewed: No Studies - Discharge Plan Condition: Good Disposition: HOME Patient Education Materials: Hip Pain (ED) Forms: *Work Release Referrals: Charlene Nicole NP [Primary Care Provider] - Additional Instructions: Avoid movements that cause pain. May apply ice or heat to the sore area. Tylenol every 4 hours may alternate with Motrin every 8 hours for pain. - Billing Disposition and Condition Condition: GOOD Disposition: Home - Attestation Statements Provider Attestation: This patient was not seen by me. I was available for consult. CHRIS
== END 2018-10-15 11:46 | disposition home or self-care (01) ==
LOC: UCCORT 10:43
DX: G89.29 Other chronic pain (principal); M25.551 Pain in right hip; Z87.39 Personal history of other diseases of the musculoskeletal system and connective tissue; Z98.890 Other specified postprocedural states
CPT/HCPCS: 99211; G0463

== ENCOUNTER 2018-12-15 11:58 | Emergency (ER) | payer OTHER ==
--- OUTSIDE RECORDS SUMMARY | 2018-12-15 12:06 | XMS REPORT | Continuity of Care Document ---
:1995 External Reference #:[id number] Author Name Obdulio Roe M.D. (transmitted by agent of provider Johanna Mak ) Address [address] [place] [address] Care Team Providers Name Role Phone Unknown Care Team Information Technical Maintenance Technician Unavailable Problems Active Problems Provider Date History of repair of hip joint Obdulio Roe M.D. Onset: 03/30/2018 Strain of flexor muscle of hip Obdulio Roe M.D. 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 Social History Type Date Description Comments Sex Unknown ETOH Use Occasionally consumes alcohol Tobacco Use Start: Unknown Denies Smoking Recreational Drug Use Denies Drug Use Smoking Status Reviewed: 12/07/18 Denies Smoking Allergies, Adverse Reactions, Alerts Description No Known Drug Allergies Medications Description No Active Medications Immunizations Description No Information Available Vital Signs Date Vital Result Comment 12/07/2018 9:08am Height 61 inches 5'1" Weight 100.00 lb BMI (Body Mass Index) 18.9 kg/m2 Heart Rate 77 /min Body Temperature 99.5 F Pain Level 2 RT Hip O2 % BldC Oximetry 99 % 09/28/2018 2:43pm Height 61 inches 5'1" Weight 100.00 lb BMI (Body Mass Index) 18.9 kg/m2 Heart Rate 95 /min Respiratory Rate 16 /min Body Temperature 98.1 F Pain Level 1 RT Hip O2 % BldC Oximetry 99 % Results Description No Information Available Procedures Description No Information Available Medical Devices Description No Information Available Encounters Type Date Location Provider Dx Diagnosis Office Visit 09/28/2018 [place] [facility] Obdulio Romo M24.151 Other articular 2:10p Ashleigh Roe cartilage disorders, right hip Office Visit 07/20/2018 [place] [facility] Obdulio Glynn47.89 Encounter for 2:00p Ashleigh Roe other orthopedic aftercare S76.011D Strain of muscle, fascia and tendon of right hip, subs 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 right hip 07/20/2018 Z47.89 Encounter for other orthopedic Sanna Apple PA-C aftercare 07/20/2018 Z47.89 Encounter for other orthopedic Obdulio Roe M.D. aftercare 07/20/2018 S76.011D Strain of muscle, fascia and tendon of Sanna Apple PA-C right hip, subsequent encounter 07/20/2018 S76.011D Strain of muscle, fascia and tendon of Obdulio Roe M.D. right hip, subsequent 07/20/2018 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, Sanna Apple PA-C right hip 07/20/2018 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, Obdulio Roe M.D. right hip Plan of Treatment No Information Available Functional Status Description No Information Available Mental Status Description No Information Available Referrals Description No Information Available
--- OUTSIDE RECORDS SUMMARY | 2018-12-15 12:06 | XMS REPORT | Continuity of Care Document ---
:1995 External Reference #:[id number] Author Name Obdulio Roe M.D. Address [address] [place] [address] Care Team Providers Name Role Phone Unknown Care Team Information Premium Service Representative Unavailable Problems Active Problems Provider Date History [...] Medications SIG Qnty Indications Ordering Provider Date Mobic 1 by mouth twice 60tabs Obdulio Romo 12/07/2018 7.5mg Tablets a day as needed Ashleigh Roe with food Immunizations Description No Information Available Vital Signs [...] Location Provider Dx Diagnosis Office Visit 09/28/2018 [place] [facility] Obdulio Romo M24.151 Other articular 2:10p Ashleigh Roe cartilage disorders, right hip Office Visit 07/20/2018 [place] [facility] Obdulio Romo Z47.89 Encounter for 2:00p Ashleigh Roe other orthopedic [...] Roe M.D. right hip Plan of Treatment Future Appointment(s):01/18/2019 3:30 pm - Obdulio Roe M.D. at [facility] Functional Status Description No Information Available Mental Status Description No Information Available Referrals Description No Information Available
[2018-12-15 12:25] VITALS: BP 106/72
--- NOTE | 2018-12-15 12:50 | UC ---
Eye Complaint HPI - HPI Summary HPI Summary: Patient is 20-year-old female presenting with dry eyes and burning sensation 1 week. Denies pain. Denies discharge but notes increased redness. States she wears glasses but not contacts. Denies changes in vision. Denies anything at this before. Denies URI symptoms. She has been using artificial tears without relief. She has an appointment with her senior it assistant but cannot get in until next week. Seasonal allergies but states they never caused dry eyes. Denies dry mouth. - History of Current Complaint Chief Complaint: UCEye Stated Complaint: BILATERAL EYE IRRITATION Hx Obtained From: Patient Hx Last Menstrual Period: 12/15/18 Onset/Duration: Sudden Onset, Lasting Days Severity Initially: Mild Severity Currently: Mild Pain Intensity: 2 Pain Scale Used: 0-10 Numeric - Allergies/Home Medications Allergies/Adverse Reactions: Allergies Allergy/AdvReac Type Severity Reaction Status Date / Time No Known Allergies Allergy Verified 12/15/18 12:25 PMH/Surg Hx/FS Hx/Imm Hx Previously Healthy: Yes - Surgical History Surgical History: Yes Surgery Procedure, Year, and Place: R 2016 and 12/2017 - Family History Known Family History: Negative: Hypertension, Diabetes - Social History Alcohol Use: Weekly Alcohol Amount: 6 Substance Use Type: None Smoking Status (MU): Never Smoked Tobacco Have You Smoked in the Last Year: No - Immunization History Vaccination Up to Date: Yes Review of Systems All Other Systems Reviewed And Are Negative: Yes Constitutional: Positive: Negative Skin: Positive: Negative Eyes: Positive: Eye Redness. Negative: Blurred Vision, Diplopia, Drainage, Photophobia ENT: Positive: Negative. Negative: Sore Throat, Ear Ache, Nasal Discharge, Sinus Congestion, Sinus Pain/Tenderness Respiratory: Positive: Negative Cardiovascular: Positive: Negative Gastrointestinal: Positive: Negative Neurological: Positive: Headache Physical Exam Triage Information Reviewed: Yes Appearance: Well-Appearing, No Pain Distress, Well-Nourished Vital Signs: Initial Vital Signs Temp 98.6 F 12/15/18 12:21 Pulse 89 12/15/18 12:21 Resp 16 12/15/18 12:21 BP 106/72 12/15/18 12:21 Pulse Ox 99 12/15/18 12:21 Vital Signs Reviewed: Yes Eyes: Positive: Conjunctiva Clear, Other: - PERRLA. EOMI. conjunctivae without erythema or injection.. Negative: Conjunctiva Inflamed, Discharge ENT Exam: Normal ENT: Positive: Hearing grossly normal, Pharynx normal, TMs normal, Uvula midline. Negative: Nasal congestion, Nasal drainage Neck exam: Normal Neck: Positive: Supple, Nontender, No Lymphadenopathy Respiratory Exam: Normal Respiratory: Positive: Lungs clear, Normal breath sounds, No respiratory distress Neurological: Positive: Alert Psychological: Positive: Age Appropriate Behavior Skin Exam: Normal Eye Complaint Course/Dx - Course Course Of Treatment: Discussed with patient that there is no concern for infectious source of eye symptoms. Instructed the patient to use lubricating eye gel as prescribed. Informed her that this is also available [id number]. Instructed her to follow up with her PCP or senior it assistant as soon as possible for further evaluation of her dry eyes. Patient voiced understanding and agreed to treatment plan. - Differential Dx/Diagnosis Provider Diagnosis: Dry eyes, bilateral Discharge ED - Sign-Out/Discharge Documenting (check all that apply): Patient Departure All imaging exams completed and their final reports reviewed: No Studies - Discharge Plan Condition: Stable Disposition: HOME Prescriptions: Hypromellose [Systane Overnight Therapy] 0.3 % OP TID PRN #1 ophth.oint PRN Reason: Dry Eye Patient Education Materials: Dry Eye Syndrome (ED) Forms: *Work Release Referrals: Charlene Nicole, CHARGING BOARD OPERATOR [Primary Care Provider] - If Needed Additional Instructions: As discussed, there are no signs of infection in your eyes. Use the lubricating eye ointment as prescribed for your dry eyes. You may also buy this [id number] if necessary. Be aware that this ointment may cause blurry vision. You may continue to use the eyedrops as needed for your dry eyes if that is what he prefer. Follow up with your PCP or senior it assistant for further evaluation of your dry eyes. - Billing Disposition and Condition Condition: STABLE Disposition: Home - Attestation Statements Provider Attestation: I was available for consult. This patient was seen by the BRIDGET. The patient was not presented to, seen by, or examined by me. -Wally
== END 2018-12-15 13:25 | disposition home or self-care (01) ==
LOC: UCCORT 11:58
DX: H57.89 Other specified disorders of eye and adnexa (principal)
CPT/HCPCS: 99212; G0463

== ENCOUNTER 2018-12-31 12:51 | Emergency (ER) | payer OTHER ==
[2018-12-31 14:49] VITALS: BP 105/69
--- NOTE | 2018-12-31 15:05 | UC ---
Hip/Pelvis Pain - HPI Summary HPI Summary: Patient's 23-year-old female presenting with right hip pain after she heard a pop as morning at work. Patient notes pain that is difficult to describe ever since. Notes constant pain and nothing makes it better or worse. States that shoots down her leg just below her knee. Denies numbness and tingling. Denies difficulty walking. Denies decreased ROM and strength. Notes mild swelling of her right foot this morning. States she had a total hip replacement one year ago due to past injuries of hip. States her orthopedic doctor could not get her in today but advised her to be evaluated here. - History Of Current Complaint Chief Complaint: UCLowerExtremity Stated Complaint: WC-RT HIP PAIN Hx Obtained From: Patient Hx Last Menstrual Period: 12/24/18 Onset/Duration: Sudden Onset Severity Currently: Severe Pain Intensity: 8 Pain Scale Used: 0-10 Numeric - Allergies/Home Medications Allergies/Adverse Reactions: Allergies Allergy/AdvReac Type Severity Reaction Status Date / Time No Known Allergies Allergy Verified 12/31/18 14:50 Home Medications: Home Medications Ibuprofen TAB* [Motrin TAB* 400 MG] 400 mg PO Q6H PRN 12/31/18 [History Confirmed 12/31/18] PMH/Surg Hx/FS Hx/Imm Hx Previously Healthy: Yes - Surgical History Surgical History: Yes Surgery Procedure, Year, and Place: R hip 2016 and 12/2017 - Family History Known Family History: Negative: Hypertension, Diabetes - Social History Alcohol Use: Weekly Alcohol Amount: 6 Substance Use Type: None Smoking Status (MU): Never Smoked Tobacco Have You Smoked in the Last Year: No - Immunization History Vaccination Up to Date: Yes Review of Systems All Other Systems Reviewed And Are Negative: No Respiratory: Positive: Negative Cardiovascular: Positive: Negative Gastrointestinal: Positive: Negative Neurovascular: Negative: Decreased Sensation Musculoskeletal: Positive: Arthralgia, Edema. Negative: Decreased ROM, Myalgia Neurological: Negative: Weakness, Paresthesia, Numbness Physical Exam Triage Information Reviewed: Yes Appearance: Well-Appearing, No Pain Distress, Well-Nourished Vital Signs: Initial Vital Signs Temp 98.4 F 12/31/18 14:44 Pulse 85 12/31/18 14:44 Resp 16 12/31/18 14:44 BP 105/69 12/31/18 14:44 Pulse Ox 100 12/31/18 14:44 Vital Signs Reviewed: Yes Eyes: Positive: Conjunctiva Clear ENT: Positive: Hearing grossly normal Neck: Positive: Supple Respiratory: Positive: No respiratory distress Cardiovascular: Positive: Pulses Normal - Strong ankle and pedal pulses bilaterally, Brisk Capillary Refill Musculoskeletal: Positive: ROM Intact, No Edema, Strength Limited @ - hip flexion and leg extension due to pain, Other: - no tenderness to palpation Neurological Exam: Other - sensation grossly intact Neurological: Positive: Alert Psychological: Positive: Age Appropriate Behavior Skin Exam: Normal - no erythema or ecchymosis noted Diagnostics - Radiology R hip xray Radiology Interpretation Completed By: Radiologist Summary of Radiographic Findings: IMPRESSION: Degenerative changes of the right hip without fracture. Hip Injury Course/Dx - Course Course Of Treatment: Discussed degenerative changes of hip found on xray. Patient declined crutches. Instructed her to continue with symptomatic relief and to follow up with her ortho surgeon as soon as possible. Instructed to go to ED if pain and symptoms worsen. Patient voiced understanding and agreed with the treatment plan. - Differential Dx/Diagnosis Provider Diagnosis: Right hip pain Discharge ED - Sign-Out/Discharge Documenting (check all that apply): Patient Departure All imaging exams completed and their final reports reviewed: Yes - Discharge Plan Condition: Stable Disposition: HOME Patient Education Materials: Arthritis (ED) Forms: *Work Release Referrals: [facility] – [facility] [Outside] - If Needed Charlene Nicole NP [Primary Care Provider] - If Needed Additional Instructions: As discussed, the xrays of the hip showed mild degenerative changes of the hip. No fractures were seen. Rest and ice the hip to help relieve pain. Refrain from strenuous physical activity that worsens your pain. You may also use over the counter pain medications as directed for relief of pain. Follow up with your orthopedic physician or the referral listed below for further evaluation. Return or go to the emergency room if pain worsens, the leg or foot becomes cold and numb, or you are not able to bear weight. - Billing Disposition and Condition Condition: STABLE Disposition: Home
== END 2018-12-31 16:11 | disposition home or self-care (01) ==
LOC: UCCORT 12:51
DX: M25.551 Pain in right hip (principal); M16.11 Unilateral primary osteoarthritis, right hip
CPT/HCPCS: 99211; G0463

== ENCOUNTER 2019-02-02 07:06 | Emergency (ER) | payer OTHER ==
[2019-02-02 07:17] VITALS: BP 119/72
[2019-02-02] MEDS ORDERED: Albuterol 2.5 MG/3 ML NEB.SOL* (0.083%) INH ONE (07:32)
--- NOTE | 2019-02-02 07:32 | UC ---
Respiratory Complaint HPI - HPI Summary HPI Summary: per development chemist: "Yesterday began with a sore throat, then cough. Cough is so rough that she is vomiting. Not able to sleep. chills. " -started yeterday. ST is only when she coughs. Tmax last night 99. she hasnt taken anti-pyretics. no swollen glands. no wheezing. no asthma. no sinus pain. mild ISABEL left yarsanism. + rt ear pain. + post-tussive cough. -no rash -left rib pain only with coughing - History of Current Complaint Chief Complaint: UCGeneralIllness Stated Complaint: THROAT,COUGH Time Seen by Provider: 02/02/19 07:10 Hx Last Menstrual Period: 2 weeks ago Pain Intensity: 0 - Allergies/Home Medications Allergies/Adverse Reactions: Allergies Allergy/AdvReac Type Severity Reaction Status Date / Time No Known Allergies Allergy Verified 02/02/19 07:18 PMH/Surg Hx/FS Hx/Imm Hx Previously Healthy: Yes - Surgical History Surgical History: Yes Surgery Procedure, Year, and Place: R 2016 and 12/2017 - Family History Known Family History: Negative: Hypertension, Diabetes - Social History Alcohol Use: Weekly Alcohol Amount: 6 Substance Use Type: None Smoking Status (MU): Never Smoked Tobacco Have You Smoked in the Last Year: No - Immunization History Vaccination Up to Date: Yes Review of Systems All Other Systems Reviewed And Are Negative: Yes Constitutional: Positive: Chills. Negative: Fever Skin: Negative: Rash Eyes: Positive: Negative ENT: Positive: Sore Throat, Ear Ache Respiratory: Positive: Cough. Negative: Shortness Of Breath Cardiovascular: Positive: Negative Gastrointestinal: Positive: Negative Genitourinary: Positive: Negative Motor: Positive: Negative Neurovascular: Positive: Negative Musculoskeletal: Positive: Negative Neurological: Positive: Negative Psychological: Positive: Negative Is Patient Immunocompromised?: No Physical Exam Triage Information Reviewed: Yes Appearance: Well-Appearing, No Pain Distress, Well-Nourished - no cough aoppreciated throughout my time in exam room Vital Signs: Initial Vital Signs Temp 98.1 F 02/02/19 07:15 Pulse 93 02/02/19 07:15 Resp 18 02/02/19 07:15 BP 119/72 02/02/19 07:15 Pulse Ox 100 02/02/19 07:15 Eye Exam: Normal ENT: Positive: Normal ENT inspection, Pharynx normal, Uvula midline. Negative: Pharyngeal erythema, Nasal congestion, Nasal drainage, TM bulging, TM dull, TM red, Tonsillar swelling, Tonsillar exudate, Hoarse voice, Sinus tenderness Dental Exam: Normal Neck exam: Normal Neck: Positive: Supple, Nontender, No Lymphadenopathy Respiratory Exam: Normal Respiratory: Positive: Chest non-tender - not tender in left axilla line where ribs hurt. breath sounds clear in that area, Lungs clear, Normal breath sounds, No respiratory distress, No accessory muscle use. Negative: Crackles, Rhonchi, Stridor, Wheezing Cardiovascular Exam: Normal Cardiovascular: Positive: RRR, No Murmur Abdominal Exam: Normal Abdomen Description: Positive: Nontender, Soft Musculoskeletal Exam: Normal Neurological Exam: Normal Psychological Exam: Normal Skin Exam: Normal Skin: Negative: Rashes Respiratory Course/Dx - Course Course Of Treatment: albuterol nebulizer treatment - feels improved. good breath sounds after treatment -she requests OOW note for today. works at [employer] w/ lifting -suspicion for strep is low - afebrile, no LAD, + cough. - Differential Dx/Diagnosis Differential Diagnosis/HQI/PQRI: Asthma, Bronchitis, Influenza, Laryngitis, Sinusitis Provider Diagnosis: Acute bronchitis Discharge ED - Sign-Out/Discharge Documenting (check all that apply): Patient Departure All imaging exams completed and their final reports reviewed: No Studies - Discharge Plan Condition: Stable Disposition: HOME Prescriptions: Albuterol HFA INHALER* [Ventolin HFA Inhaler*] 2 puff INH Q4H PRN 14 Days #1 mdi PRN Reason: Cough Patient Education Materials: Acute Bronchitis (ED) Forms: *Work Release Referrals: Charlene Nicole NP [Primary Care Provider] - 5 Days Additional Instructions: There is no evidence for any bacterial infection at this time. Make sure you get plenty of fluids and rest. OTC mucinex can be helpful as well. - Billing Disposition and Condition Condition: STABLE Disposition: Home
== END 2019-02-02 08:03 | disposition home or self-care (01) ==
LOC: UCCORT 07:06
DX: J20.9 Acute bronchitis, unspecified (principal); J02.9 Acute pharyngitis, unspecified; H92.01 Otalgia, right ear
CPT/HCPCS: 99212; G0463

== ENCOUNTER 2019-02-16 07:10 | Emergency (ER) | payer OTHER ==
[2019-02-16 07:23] VITALS: BP 103/69
--- NOTE | 2019-02-16 07:28 | UC ---
Abdominal Pain Female HPI - HPI Summary HPI Summary: Patient presents to urgent care stating at 4:30 yesterday she had Haitian food. Patient states starting around 5:30 she had diarrhea. Patient states she's had intermittent episodes of diarrhea through the night. Patient state she has been cramping in the lower Noemi back and then has abdominal. Pain subsided following bowel movement. Patient took Pepto-Bismol at midnight and again at 5 AM with little improvement. Patient denies blood or black in her stool. Patient with no fevers or chills. No nausea or vomiting. Patient states she is not . Patient's medications as noted in the reviewed this visit. Patient states nobody else ate the food. Patient without sick contacts. Patient was scheduled to work at 8:00 this morning - History of Current Complaint Chief Complaint: UCGI Stated Complaint: DIARRHEA Time Seen by Provider: 02/16/19 07:26 Hx Obtained From: Patient Hx Last Menstrual Period: 01/18/19 Pain Intensity: 5 Allergies/Adverse Reactions: Allergies Allergy/AdvReac Type Severity Reaction Status Date / Time No Known Allergies Allergy Verified 02/16/19 07:17 Home Medications: Home Medications Bismuth Subsalicylate [Pepto-Bismol] 30 ml PO ONCE 02/16/19 [History Confirmed 02/16/19] PMH/Surg Hx/FS Hx/Imm Hx Previously Healthy: Yes - Surgical History Surgical History: Yes Surgery Procedure, Year, and Place: R hip 2016 and 12/2017 - Family History Known Family History: Negative: Hypertension, Diabetes - Social History Occupation: Employed Full-time Alcohol Use: Weekly Alcohol Amount: 6 Substance Use Type: None Smoking Status (MU): Never Smoked Tobacco Have You Smoked in the Last Year: No - Immunization History Vaccination Up to Date: Yes Review of Systems All Other Systems Reviewed And Are Negative: Yes Constitutional: Positive: Negative Skin: Positive: Negative Gastrointestinal: Positive: Abdominal Pain - cramping resolved with BM, Diarrhea Physical Exam - Summary Physical Exam Summary: Vital Signs Reviewed: Yes A+Ox3, no distress Eyes: Conjunctiva Clear, WENDIE. EOM intact and full ENT: Hearing grossly normal TM x 2 clear, mmpasty uvula midline, no exudate, no erythema Neck: Positive: Supple Respiratory: Positive: No respiratory distress, No accessory muscle use + CTA throughout no w/r Cardiovascular: RRR nl s1, s2 no m/r CBT <2 sec abd soft + BS, nd soft mild discomfort LUQ, RLQ no guarding no rebound Musculoskeletal Exam: WATSON x 4 without difficulty Strength Intact, ROM Intact Neurological: Positive: Alert, + sensation throughout Psychological: Positive: Normal Response To examiner Skin: Positive: no rash, no ecchymosis Triage Information Reviewed: Yes Vital Signs: Initial Vital Signs Temp 97.9 F 02/16/19 07:18 Pulse 95 02/16/19 07:18 Resp 18 02/16/19 07:18 BP 103/69 02/16/19 07:18 Pulse Ox 100 02/16/19 07:18 Abd Pain Female Course/Dx - Course Course Of Treatment: Patient presents to urgent care with diarrhea that started last night persisted through the night. Patient states this started about 1 hour after eating Haitian food. Nobody else ate the food. Patient states anything she puts and feels like it wants right now. Patient was scheduled for 8:00 this morning. Patient reports abdominal cramping gets better after she has a bowel movement. No fevers. No nausea or vomiting. On exam vital signs are stable. Patient does appear mildly dehydrated. Her mucous membranes. Patient with some mild abdominal discomfort in her left upper and right lower quadrants. No guarding or rebound. Checked a urinalysis shows trace ketones. Patient unable to give a stool sample at urgent care. Imodium. Return stool sample if symptoms continue. Advised pt to monitor abdominal pain closely - could represent early appy. pt states understanding and agreement. return precautions discussed. - Differential Dx/Diagnosis Provider Diagnosis: Diarrhea Discharge ED - Sign-Out/Discharge Documenting (check all that apply): Patient Departure All imaging exams completed and their final reports reviewed: No Studies - Discharge Plan Condition: Stable Disposition: HOME Patient Education Materials: Acute Diarrhea (ED) Forms: *Work Release Referrals: Charlene Nicole NP [Primary Care Provider] - Additional Instructions: - Stay well hydrated -drink plenty of non-alcoholic, non-caffinated beverages. Frequent sips of fluids (water, gatorade, popsicles,jello) - It is recommended you eat bland food (eggs, dry toast, plain pasta) Do not eat spicy food, acidic food, tomato based food, fried foods, until you are feeling better - Collect a stool sample and bring back for testing if your diarrhea continues - it is recommended you take Immodium to help with your symptoms - As discussed - you have a little discomfort in your right lower part of your stomach area. This is most like related to your diarrhea. However, as the doctor discussed with you today this could represent an early appendicitis. Monitor your symptoms closely - if your pain increases, you develop fevers or you have any other changes to your symptoms, please go to the emergency department for further testing and treatment - Billing Disposition and Condition Condition: STABLE Disposition: Home
== END 2019-02-16 08:30 | disposition home or self-care (01) ==
LOC: UCCORT 07:10
DX: R19.7 Diarrhea, unspecified (principal)
CPT/HCPCS: 81003; 99211; G0463

== ENCOUNTER 2019-03-27 07:17 | Emergency (ER) | payer OTHER ==
[2019-03-27 07:28] VITALS: BP 120/81
--- NOTE | 2019-03-27 07:41 | UC ---
Throat Pain/Nasal Norberto HPI - HPI Summary HPI Summary: sinus pain / pressure x 4 days had cold symptoms for the past 10 days with runny nose nasal congestion , pnd , cough , no moving to her sinuses no fever, + chills - History of Current Complaint Chief Complaint: UCRespiratory Stated Complaint: EAR PAIN,SINUS PAIN Time Seen by Provider: 03/27/19 07:33 Hx Obtained From: Patient Hx Last Menstrual Period: 02/24/19 ?: No Onset/Duration: Gradual Onset, Lasting Days - 5, Still Present Severity: Moderate Pain Intensity: 5 Cough: Nonproductive Associated Signs & Symptoms: Positive: Sinus Discomfort, Nasal Discharge. Negative: Fever, Vomiting, Rash - Allergies/Home Medications Allergies/Adverse Reactions: Allergies Allergy/AdvReac Type Severity Reaction Status Date / Time No Known Allergies Allergy Verified 03/27/19 07:25 Home Medications: Home Medications Dm/Acetaminophen/Doxylamine [Vicks Nyquil Cold & Flu N 15-6.25-325 mg] 2 cap PO Q6H PRN 03/27/19 [History Confirmed 03/27/19] PMH/Surg Hx/FS Hx/Imm Hx Previously Healthy: Yes - Surgical History Surgical History: Yes Surgery Procedure, Year, and Place: R 2016 and 12/2017 - Family History Known Family History: Negative: Hypertension, Diabetes - Social History Alcohol Use: Weekly Alcohol Amount: 6 Substance Use Type: None Smoking Status (MU): Never Smoked Tobacco Have You Smoked in the Last Year: No - Immunization History Vaccination Up to Date: Yes Review of Systems All Other Systems Reviewed And Are Negative: Yes Constitutional: Positive: Chills, Fatigue. Negative: Fever Skin: Positive: Negative Eyes: Positive: Negative ENT: Positive: Sore Throat, Ear Ache, Nasal Discharge, Sinus Congestion, Sinus Pain/Tenderness Respiratory: Positive: Cough Is Patient Immunocompromised?: No Physical Exam Triage Information Reviewed: Yes Appearance: Well-Appearing, No Pain Distress, Well-Nourished Vital Signs: Initial Vital Signs Temp 98.2 F 03/27/19 07:23 Pulse 90 03/27/19 07:23 Resp 16 03/27/19 07:23 BP 120/81 03/27/19 07:23 Pulse Ox 100 03/27/19 07:23 Vital Signs Reviewed: Yes Eye Exam: Normal ENT: Positive: Normal ENT inspection, Hearing grossly normal, Pharynx normal, Nasal congestion, Nasal drainage, TMs normal, Sinus tenderness. Negative: TM bulging, TM dull, TM red Neck exam: Normal Neck: Positive: Supple, Nontender, No Lymphadenopathy Respiratory: Positive: Chest non-tender, Lungs clear, Normal breath sounds Cardiovascular: Positive: RRR, No Murmur, Pulses Normal Abdominal Exam: Normal Throat Pain/Nasal Course/Dx - Differential Dx/Diagnosis Provider Diagnosis: Sinusitis Discharge ED - Sign-Out/Discharge Documenting (check all that apply): Patient Departure All imaging exams completed and their final reports reviewed: No Studies - Discharge Plan Condition: Stable Disposition: HOME Prescriptions: Amoxicillin/Clavulanate TAB* [Augmentin TAB 875*] 875 mg PO BID #20 tab Patient Education Materials: Sinusitis (ED) Referrals: Charlene Nicole NP [Primary Care Provider] - If Needed Additional Instructions: could still be a viral illness will have you try Augmentin for possible sinusitis may use OTC meds Mucinex / Flonas - Billing Disposition and Condition Condition: STABLE Disposition: Home
== END 2019-03-27 07:43 | disposition home or self-care (01) ==
LOC: UCCORT 07:17
DX: J32.9 Chronic sinusitis, unspecified (principal); R53.83 Other fatigue; H92.09 Otalgia, unspecified ear
CPT/HCPCS: 99212; G0463